=== PATIENT | female | born 1955 | race Caucasian/White ===

== ENCOUNTER → 2022-01-10 | Outpatient (CLI) | payer MEDICARE, OTHER ==
[~2022-01-10] MED LIST: ATORVASTATIN CA80 MG PO; CETIRIZINE HCL10 MG PO; CHONDROITIN SULFATE PO; CLONIDINE HCL0.1 MG PO; FAMOTIDINE40 MG PO; HYDROCHLOROTHIA25 MG PO; ISOSORBIDE MONO30 MG PO; LO-DOSE ASPIRIN81 MG PO; LOSARTAN POTAS100 MG PO; NITROGLYCERIN0.4 MG SL; SOTALOL120 MG PO
== END ==
LOC: KOH-I 09:58
DX: R60.9 Edema, unspecified (principal)
CPT/HCPCS: 71046

== ENCOUNTER → 2022-02-21 | Outpatient (CLI) | payer MEDICARE, OTHER | LOC: US 13:30 | DX: M79.89 Other specified soft tissue disorders (principal); M79.605 Pain in left leg | CPT/HCPCS: 93971 ==